=== PATIENT | female | born 1995 | race Caucasian/White ===

== ENCOUNTER 2018-07-27 20:54 | Emergency (ER) | payer MEDICAID, OTHER ==
[~2018-07-27] VITALS: Ht 162.6 cm; Wt 62.8 kg
[2018-07-27 20:55] VITALS: BP 141/81
== END 2018-07-27 21:37 | disposition home or self-care (01) ==
LOC: ER 20:55
DX: F11.23 Opioid dependence with withdrawal (principal); T40.2X5A Adverse effect of other opioids, initial encounter; F17.200 Nicotine dependence, unspecified, uncomplicated; F19.90 Other psychoactive substance use, unspecified, uncomplicated; Y92.89 Other specified places as the place of occurrence of the external cause
CPT/HCPCS: 99281